=== PATIENT | female | born 1970 | race Caucasian/White ===

== ENCOUNTER 2023-10-24 13:21 | Emergency (ER) | payer BC, SELFPAY ==
[2023-10-24 13:27] VITALS: BP 113/68
--- NOTE | 2023-10-24 15:17 | ED.GENMED ---
History of Present Illness
General
Chief Complaint: Swelling
Time Seen by Provider: 10/24/23 15:16
Travel History
Have you had any contact with someone who has COVID-19?: No
Do you have any symptoms of coronavirus? Fever > 100 degrees, chills, cough, shortness of breath, sore throat, loss of taste or smell, muscle aches, or headache?: No
History of Present Illness
History of Present Illness:
HPI: About 6 days ago, she was bitten by an insect while gardening. The location of the bite was in the posterior neck. She has had no fevers. However more recently she is noticed some increased 'bumps' that I suspect are lymph nodes. She had
some pain generally to the back of the neck but has no decreased active range of motion.
EXAM:
GENERAL: Well appearing in no distress
HEENT: Moist oral mucosa
CARDIOVASCULAR: No murmurs, normal heart rate, regular rhythm, No chest wall tenderness
PULMONARY: No respiratory distress, breath sounds are clear and equal
ABDOMEN: Soft with no peritoneal signs, no tenderness
NEUROLOGIC: Excellent strength all extremities, no coordination deficits
PSYCHIATRIC: Appropriate mental status, normal insight and judgement
EXTREMITIES: Nontender, no edema, moves all extremities equally
SKIN: There is a small patch of erythema about 3 cm in diameter to the midline upper cervical region posteriorly, there is 1 palpable posterior lymph node which is somewhat tender to the left side of the posterior neck
TIME OF INITIAL ENCOUNTER:
3:20 PM
NUMBER AND COMPLEXITY OF PROBLEMS ADDRESSED AT THE ENCOUNTER
� Chronic conditions affecting care: Denies any significant past medical history
� Acute Exacerbation and/or Progression of Chronic Illness: This is an acute problem
� Differential Diagnosis includes: Insect bite with local inflammatory reaction, lymphadenitis, cellulitis, vital signs not consistent with
AMOUNT AND/OR COMPLEXITY OF DATA TO BE REVIEWED AND ANALYZED
� I performed an independent evaluation of and my interpretation is:
EKG:
CT:
X-rays:
Laboratory Studies:
Other:
� Review of other/old records: No old records available for review
� Clinical information was obtained by an independent historian: None needed
� Prescriptions/Medications Considered but not given:
� Further testing considered but not performed:
RISK OF COMPLICATIONS AND/OR MORBIDITY OR MORTALITY OF PATIENT MANAGEMENT
� Social determinants of health affecting care: Lives at home
� Discussion with other providers:
� Escalation of care including admission/observation vs risk of discharge considered: The patient had a insect bite now with some erythema and some swollen lymph nodes�will start antibiotics. She is very well-appearing and vital
signs not consistent with sepsis.
Phy Exam
Physical Exam
Physical Exam:
See HPI
Scores
Heart Failure Risk
Heart Failure Risk Score: Not Applicable
Course
Orders/Labs/Results
Orders:
Orders
10/24/23 15:23
Cephalexin Monohydrate [Keflex] 500 mg PO NOW STA
Vital Signs
Initial and Last Documented VS:
Initial Vital Signs
Temp Pulse Resp BP Pulse Ox
98.5 F 88 16 113/68 98
10/24/23 13:27 10/24/23 13:27 10/24/23 13:27 10/24/23 13:27 10/24/23 13:27
Last Documented Vital Signs
Temp Pulse Resp BP Pulse Ox
98.5 F 88 16 113/68 98
10/24/23 13:27 10/24/23 13:27 10/24/23 13:27 10/24/23 13:27 10/24/23 13:27
*Critical Care Note
Total Time (30-74mins, 75-104mins- exclusive of procedures): Not Applicable
ED Attending Note
-
Portions of this chart may have been created with voice recognition software.� Occasional wrong word or��sound alike� substitutions may have occurred due to the inherent limitations of voice recognition software.
Discharge Plan
Departure
Patient Disposition: Home (Routine Discharge)
Date of Disposition: 10/24/23
Time of Disposition: 15:24
Patient with high blood pressure during this ER visit?: Yes
Discharge Problem:
Lymphadenitis
Instructions: Lymphadenitis (DC)
Prescriptions:
New
cephalexin 500 mg capsule
500 mg PO TID Qty: 21 0RF
Referrals:
Ramana Mitchell MD [Family Provider] -
Interventions
Interventions:
*Risk Screen - Suicide Last Done: 10/24/23 13:27
*General Assessment Last Done: 10/24/23 13:27
*Neglect/Abuse Screening Last Done: 10/24/23 13:27
*ED COVID-19 Vaccine History Last Done: 10/24/23 13:27
Discharge Date and Time
Print Language: FAROESE
[2023-10-24] MEDS: KEFLEX 500 MG PO (15:29)
== END 2023-10-24 15:32 | disposition home or self-care (01) ==
LOC: EMR 13:21
PROVIDERS: EMERGENCY PHYSICIAN Emergency Medicine; FAMILY PHYSICIAN Internal Medicine
DX: I88.9 Nonspecific lymphadenitis, unspecified (principal)
CPT/HCPCS: 99282